=== PATIENT | female | born 1995 | race African-American/Black ===

== ENCOUNTER 2022-08-08 15:32 | Emergency (ER) | payer MEDICAID, OTHER ==
[~2022-08-08] VITALS: Ht 162.6 cm; Wt 68.0 kg
[2022-08-08 17:03] LABS: CLARITY URINE CLEAR (CLEAR); COLOR URINE YELLOW (YELLOW); KETONES URINE NEGATIVE (NEGATIVE); LEUKOCYTE ESTERASE URINE NEGATIVE (NEGATIVE); NITRITE URINE NEGATIVE (NEGATIVE); OCCULT BLOOD URINE NEGATIVE (NEGATIVE); PROTEIN URINE NEGATIVE (NEGATIVE); SPECIFIC GRAVITY URINE 1.018 (1.005-1.030)
[2022-08-08] MEDS ORDERED: PARO-150 MT (17:58)
[2022-08-08 18:09] VITALS: BP 127/90
== END 2022-08-08 18:11 | disposition home or self-care (01) ==
LOC: ER 15:32
DX: R07.89 Other chest pain (principal)
CPT/HCPCS: 81003; 81025; 93005; 99284

== ENCOUNTER 2022-10-12 21:12 | Emergency (ER) | payer MEDICAID, OTHER ==
[~2022-10-12] VITALS: Ht 165.1 cm; Wt 69.5 kg
[~2022-10-12 21:12] MED LIST: PARO-150 MT
[2022-10-12 22:17] VITALS: BP 121/80; PULSE 89; RESP 15; TEMP 96.2; O2SAT 100
== END 2022-10-12 23:50 | disposition left against medical advice (07) ==
LOC: ER 21:34
DX: Z53.21 Procedure and treatment not carried out due to patient leaving prior to being seen by health care provider (principal)
CPT/HCPCS: 99281